=== PATIENT | male | born 1965 | race Caucasian/White ===

== ENCOUNTER 2017-07-11 11:30 | Emergency (ER) | payer BC ==
[~2017-07-11] VITALS: Ht 182.9 cm; Wt 102.0 kg
[~2017-07-11 11:30] MED LIST: AUGMENTIN875 MG PO; CIPRO500 MG PO; CRESTOR20 MG PO; CRESTOR40 MG PO; FLAGYL500 MG PO; FLORASTOR250 MG PO; LISINOPRIL-HCT1 EAC3 PO; LISINOPRIL20 MG PO; METRONIDAZOLE500 MG PO; PEPCID20 MG PO; PERCOCET 5/31 TABLET PO; TRICOR145 MG PO
[2017-07-11 13:16] LABS: HEMATOCRIT 32.9 % (38.0-50.0); HEMOGLOBIN 11.6 G/DL (12.5-16.6); MCH 30.3 PG (29.0-34.0); MCHC 35.3 G/DL (30.0-36.0); MCV 85.9 FL (86-99); PLATELET COUNT 346 K/uL (156-360); RBC DIS.WIDTH-CV 12.5 % (11.8-14.6); RBC DIS.WIDTH-SD 39.2 % (39-53); RED BLOOD COUNT 3.83 M/uL (4.00-5.50); WHITE BLOOD COUNT 9.9 K/uL (4.1-10.2)
[2017-07-11 13:25] LABS: CHLORIDE 105 mEq/L (99-109); POTASSIUM 3.4 mEq/L (3.7-5.4); SODIUM 140 mEq/L (136-147)
[2017-07-11 13:33] LABS: GLUCOSE 97 mg/dL (70-99)
[2017-07-11 13:37] LABS: CREATININE 0.7 mg/dL (0.6-1.3); GFR ESTIMATE (CALCULATED) > 59 mL/min/ (58.99-99999)
[2017-07-11 13:38] LABS: UREA NITROGEN (BUN) 14 mg/dL (9-23)
[2017-07-11] MEDS ORDERED: ADULT ASPIRIN R81 MG PO (13:41)
[2017-07-11] MEDS ORDERED: HYDRALAZINE HCL50 MG PO (13:42)
[2017-07-11] MEDS ORDERED: LISINOPRIL20 MG PO (13:44)
[2017-07-11] MEDS ORDERED: TOPROL XL50 MG PO (13:46)
[2017-07-11] MEDS ORDERED: NICODERM CQ1 EACH TD (13:47)
[2017-07-11] MEDS ORDERED: POTASSIUM PHOSPHATE PO (13:51)
[2017-07-11] MEDS ORDERED: [UNRECOGNIZED DRUG - OTHER] PO (13:51)
[2017-07-11] MEDS ORDERED: CRESTOR40 MG PO (13:53)
[2017-07-11] MEDS ORDERED: XANAX0.5 MG PO (14:27)
[2017-07-11] MEDS ORDERED: ZOFRAN4 MG PO (14:27)
[2017-07-11 15:10] VITALS: BP 180/95
== END 2017-07-11 15:10 | disposition home or self-care (01) ==
LOC: EME 11:30
PROVIDERS: Emergency Medicine
DX: R11.0 Nausea (principal); F41.9 Anxiety disorder, unspecified; I10 Essential (primary) hypertension; E78.5 Hyperlipidemia, unspecified; I25.2 Old myocardial infarction; Z79.82 Long term (current) use of aspirin; Z87.891 Personal history of nicotine dependence
CPT/HCPCS: 80048; 85027; 93005; 99281; 99285; J7030